=== PATIENT | male | born 1965 | race Caucasian/White ===

== ENCOUNTER 2017-12-05 14:32 | Emergency (ER) | payer BC ==
[2017-12-05 14:38] VITALS: BP 156/81; BMI 37.2
--- NOTE | 2017-12-05 15:06 | DR.GENAD ---
HPI - PCP Primary Care Physician: bib - Complaint/Symptoms Chief Complaint Doctors Comments: Patient presents with complaint of Right flank pain that radiates to the right inguinal area for the past one to tho weeks; today Chief Complaint:: pt stated he has been having right lower abd pain that has been coming and going but today it has been worse. - Source History Provided: Patient - Mode of Arrival Mode of Arrival: Ambulatory - Timing Onset of Chief Complaint: 11/25/17 PMH - PMH Past Medical History: Yes Past Medical History: Hypertension Past Surgical History: Yes Surgical History: Ortho Surgery - Family History History of Family Medical Conditions: Yes Family Medical History: Hypertension - Social History Does patient currently use any type of tobacco product: No Have you used tobacco products in the last 12 months: No Type of Tobacco Use: Smokeless How many years tobacco product used: 30 Does any household member use tobacco: No Alcohol Use: None Do you use any recreational Drugs:: No Lives With: Family Lives Where: Home - infectious screening In the last 2 months have you had wt loss of >10#?: NO Have you had fever, night sweats or hemotysis?: No Have you traveled outside the country in the last 6 months?: No Isolation: Standard ROS - Review of Systems Eyes: No Symptoms Reported ENTM: No Symptoms Reported Respiratoy: No Symptoms Reported Cardiovascular: No Symptoms Reported Gastrointestinal/Abdominal: No Symptoms Reported Genitourinary: No Symptoms Reported Neurological: No Symptoms Reported Musculoskeletal: No Symptoms Reported Integumentary: No Symptoms Reported Hematologic/Lymphatic: No Symptoms Reported Endocrine: No Symptoms Reported Psychiatric: No Symptoms Reported All Other Systems: Reviewed and Negative PE - Vital Signs Vitals: Temperature 99.8 F Pulse Rate 72 Respiratory Rate 18 Blood Pressure 156/81 O2 Sat by Pulse Oximetry 97 - General Limitations: No Limitations General Appearance: Alert, In No Apparent Distress - Head Head Exam: Normal Inspection, Atraumatic - Eyes Eye exam: Normal Appearance, PERRL, EOMI - ENT ENT Exam: Normal Exam, Normal Oropharynx External Ear Exam: Normal External Inspection TM/Canal Exam: Bilateral Normal Nose Exam: Normal Nose Exam, Sinus Tenderness Mouth Exam: Normal Inspection Throat Exam: Normal Inspection, Tonsillar Erythema - Neck Neck Exam: Normal Inspection, Full ROM - Chest Chest Inspection: Normal Inspection, Symmetric Chest Wall Rise - Respiratory Respiratory Exam: Normal Lung Sounds Bilat Respiratory Exam: Bilateral Clear to Auscultation - Cardiovascular Cardiovascular Exam: Regular Rate, Normal Rhythm - Abdominal Exam Abdominal Exam: Normal Inspection Abdominal Tenderness: RLQ (pain) - Extremities Extremities Exam: Normal Inspection, Full ROM - Back Back Exam: Normal Inspection, Full ROM - Neurologic Neurological Exam: Alert, Oriented X3, CN II-XII Intact - Psychiatric Psychiatric Exam: Normal Affect, Normal Mood - Skin Skin Exam: Warm, Dry, Intact Course - Reevaluation 1st: Unchanged - Education/Counseling Educated On: Treatment, Diagnosis, Prognosis ROR - Labs Reviewed Result Diagrams: 12/05/17 15:31 Laboratory: WBC 6.2 X10^3/uL (3.6-10.0) 12/05/17 15:31 RBC 5.01 X10^6/uL (4.7-6.0) 12/05/17 15:31 Hgb 15.5 g/dL (13.5-18.0) 12/05/17 15:31 Hct 44.5 % (42.0-54.0) 12/05/17 15:31 MCV 89.0 fL (80.0-100.0) 12/05/17 15:31 MCH 31.0 pg (27.0-34.0) 12/05/17 15:31 MCHC 34.9 g/dL (33.0-35.0) 12/05/17 15:31 RDW 13.4 % (11.6-16.5) 12/05/17 15:31 Plt Count 191 X10^3/uL (150.0-450.0) 12/05/17 15:31 MPV 9.9 fL (7.4-11.0) 12/05/17 15:31 Neut % 52.6 % (42.0-75.0) 12/05/17 15: Lymph % 33.3 % (21.0-51.0) 12/05/17 15: Cameron % 10.3 % (0.0-13.0) 12/05/17 15:31 Eos % 3.3 % (0.9-2.9) H 12/05/17 15:31 Baso % 0.5 % (0.2-1.0) 12/05/17 15:31 Neut # 3.3 x10^3/uL (2.2-4.8) 12/05/17 15:31 Lymph # 2.1 X10^3/uL (1.3-2.9) 12/05/17 15:31 Cameron # 0.6 x10^3/uL (0.3-0.8) 12/05/17 15:31 Eos # 0.2 x10^3/uL (0.0-0.2) 12/05/17 15: Baso # 0.0 X10^3/uL (0.0-0.1) 12/05/17 15:31 Absolute Nucleated RBC 0.0 /100WBC 12/05/17 15:31 C-Reactive Protein 1.30 mg/L (0-3.0) 12/05/17 15:31 Specimen Type Random urine 12/05/17 16:06 Urine Color Yellow (YELLOW) 12/05/17 16:06 Urine Appearance Clear (CLEAR) 12/05/17 16:06 Urine pH 6.0 (5.0 - 8.0) 12/05/17 16:06 Ur Specific Pillager 1.020 (1.000-1.030) 12/05/17 16:06 Urine Protein Negative (NEGATIVE) 12/05/17 16:06 Urine Glucose (UA) Negative (NEGATIVE) 12/05/17 16:06 Urine Ketones Negative (NEGATIVE) 12/05/17 16:06 Urine Occult Blood 2+ (NEGATIVE) 12/05/17 16:06 Urine Nitrite Negative (NEGATIVE) 12/05/17 16:06 Urine Bilirubin Negative (NEGATIVE) 12/05/17 16:06 Urine Urobilinogen Normal (NORMAL) 12/05/17 16:06 Ur Leukocyte Esterase Negative (NEGATIVE) 12/05/17 16:06 Urine RBC Rare /HPF (NONE SEEN) 12/05/17 16:06 Urine WBC None seen /HPF (NONE SEEN) 12/05/17 16:06 Ur Squamous Epith Cells Rare /HPF (NEGATIVE) 12/05/17 16:06 Amorphous Sediment Trace /HPF (NEGATIVE) 12/05/17 16:06 Urine Bacteria Negative /HPF (NEGATIVE) 12/05/17 16:06 Ur Culture Indicated? No/not indicated 12/05/17 16:06 - XRAY XRAY Interpreted by: Radiologist (Acute abdominal series: negative: CT ABD/Pelv : The lung bases are clear. The heart is normal in size without a pericardial effusion. The liver, gallbladder, adrenal glands and spleen are unremarkable on these non contrasted images. There is no pneumoperitoneum or hemoperitoneum seen. There is no bowel obstruction,large hernia defect, or acute mesenteric or hemoperitoneum seen. There is no bowel obstruction, large hernia defect, or acute mesenteric inflammatory change. There is no evidence for colitis, diverticulitis, or appendicitis. No loculated intraperitoneal fluid collection is seen. Examination of the kidneys demonstrates no obstructing renal stone. There is a 2cm right sided simple cyst. There is a large quantity of stool. No other renal,bladder, or abdominopelvic abnormalities are seen. Impression: No CT evidence for obstructing renal stone or acute appendicitis. Moderate to large quantity of colonic stool observed without obstruction. Scattered sigmoid colonic diverticulosis without diverticulitis, Small periumbilical fat containing hernia without obstruction. No other acute abdominopelvic abnormalities are seen.) - Diagnosis Discharge Problem: Constipation Qualifiers: Constipation type: slow transit constipation Qualified Code(s): K59.01 - Slow transit constipation - Discharge Plan Condition: Stable - Follow ups/Referrals Follow ups/Referrals: Marco Reese [Primary Care Provider] - 3 days - Instructions
[2017-12-05] MEDS ORDERED: TORADOL 30 MG VIAL IVP ONE (15:08)
[2017-12-05] MEDS ORDERED: NS 1000 ML 1,000 ML ONE (15:28)
--- NOTE | 2017-12-05 15:29 | RAD ---
Examination: Abdomen with PA chest History: RLQ pain Findings: PA view of the chest indicates normal heart size with clear lungs and pleural spaces. Addit ional supine and erect views of abdomen demonstrate unremarkable and nonobstructive gas pattern. No e vidence for ascites, pneumoperitoneum, pathologic calcification or mass formation. Impression: No acute chest or abdominal process identified. Reported By:
[2017-12-05] MEDS ORDERED: TORADOL 30 MG VIAL ONE (15:30)
[2017-12-05 15:54] LABS: BASOPHILS % (AUTO) 0.5 % (0.2-1.0); EOSINOPHILS # (AUTO) 0.2 x10^3/uL (0.0-0.2); EOSINOPHILS % (AUTO) 3.3 % (0.9-2.9); HEMATOCRIT 44.5 % (42.0-54.0); HEMOGLOBIN 15.5 g/dL (13.5-18.0); LYMPHOCYTES # (AUTO) 2.1 X10^3/uL (1.3-2.9); LYMPHOCYTES % (AUTO) 33.3 % (21.0-51.0); MEAN CORPUSCULAR HGB CONC 34.9 g/dL (33.0-35.0); MEAN PLATELET VOLUME 9.9 fL (7.4-11.0); MONOCYTES # (AUTO) 0.6 x10^3/uL (0.3-0.8); MONOCYTES % (AUTO) 10.3 % (0.0-13.0); NEUTROPHILS # (AUTO) 3.3 x10^3/uL (2.2-4.8); NEUTROPHILS % (AUTO) 52.6 % (42.0-75.0); PLATELET COUNT 191 X10^3/uL (150.0-450.0); RED BLOOD COUNT 5.01 X10^6/uL (4.7-6.0); RED CELL DISTRIBUTION WIDTH 13.4 % (11.6-16.5); WHITE BLOOD COUNT 6.2 X10^3/uL (3.6-10.0)
[2017-12-05] MEDS ORDERED: NS 1000 ML 1,000 ML IV SCH (16:00)
[2017-12-05 16:21] LABS: BILIRUBIN,URINE NEGATIVE (NEGATIVE); BLOOD/HEMOGLOBIN,URINE 2+ (NEGATIVE); GLUCOSE, URINE NEGATIVE (NEGATIVE); KETONES,URINE NEGATIVE (NEGATIVE); LEUKOCYTE ESTERASE ,URINE NEGATIVE (NEGATIVE); NITRITES,URINE NEGATIVE (NEGATIVE); PROTEIN,URINE NEGATIVE (NEGATIVE); UROBILINOGEN,URINE NORMAL (NORMAL)
[2017-12-05 16:25] LABS: APPEARANCE,URINE CLEAR (CLEAR); COLOR,URINE YELLOW (YELLOW)
--- NOTE | 2017-12-05 16:29 | CT ---
History: Renal colic and flank pain. Concern for renal stone. Exam: Non-contrast CT examination of the abdomen & pelvis. Technique: Multiple CT images of the abdomen and pelvis were obtained from the lung bases to the pubi c symphysis without the IV administration of radiopaque contrast. Findings: The lung bases are clear. The heart is normal in size without a pericardial effusion. The liver, gall bladder, adrenal glands, and spleen are unremarkable on these non contrasted images. There is no pneu moperitoneum or hemoperitoneum seen. There is no bowel obstruction, large hernia defect, or acute mes enteric inflammatory change. There is no evidence for colitis, diverticulitis, or appendicitis. No lo culated intraperitoneal fluid collection is seen. Examination of the kidneys demonstrates no obstructing renal stone. There is a 2 cm right-sided simpl e measuring renal cyst observed. There is a large quantity of stool. No other renal, bladder, or abdo minopelvic abnormalities are seen. No lytic bony lesions or acute fractures are seen. Impression: No CT evidence for obstructing renal stone or acute appendicitis. [id number] quantity of colonic stool observed without obstruction. Scattered sigmoid colonic diverticulosis without diverticulitis. Small periumbilical fat containing hernia without obstruction. No other acute abdominopelvic abnormalities are seen. Reported By:
[2017-12-05 16:33] LABS: AMORPHOUS SEDIMENT,UR TRACE /HPF (NEGATIVE); BACTERIA,URINE NEGATIVE /HPF (NEGATIVE); RBC,URINE RARE /HPF (NONE SEEN); SQUAMOUS EPITHELIAL CELL,UR RARE /HPF (NEGATIVE)
[2017-12-05] MEDS ORDERED: CITROMA ONE (16:53)
[2017-12-05] MEDS ORDERED: CITROMA PO ONE (16:53)
== END 2017-12-05 16:59 | disposition home or self-care (01) ==
LOC: ER 14:42
DX: K59.01 Slow transit constipation (principal)
CPT/HCPCS: 36415; 74022; 74176; 81001; 85025; 86140; 96365; 96374; 96375; 99283; 99284; A4222; J1885

== ENCOUNTER → 2018-01-09 | Outpatient (CLI) | payer BC ==
[~2018-01-09] MED LIST: NS 100 ML IV 100 ML IV ONE
[2018-01-09 10:31] LABS: CREATININE 1.25 mg/dL (0.70-1.30)
--- NOTE | 2018-01-09 11:28 | CT ---
History: Right upper quadrant pain Study: CT abdomen and pelvis with contrast Findings: [address] imaging is performed from above the diaphragms to below the pubic symphysis following the oral ingestion of dilute contrast and during the intravenous administration of 99 mL o f Omnipaque 350. Coronal and sagittal reformatted images are submitted as well. Lung bases are clear and there are no pleural effusions. The liver and spleen are normal in size and enhance uniformly. Th e gallbladder, pancreas adrenal glands and left kidney appear unremarkable. A posterior cyst in the m idpole the right kidney is demonstrated. Large and small bowel in the appendix appear unremarkable. O sseous structures appear intact. Impression: Small right renal cyst. Reported By:
== END | disposition home or self-care (01) | DRG 392 ==
LOC: RAD 09:56
DX: R10.32 Left lower quadrant pain (principal); R10.31 Right lower quadrant pain; K57.30 Diverticulosis of large intestine without perforation or abscess without bleeding; N28.1 Cyst of kidney, acquired
CPT/HCPCS: 36415; 74177; 82565; 84520; A4222